=== PATIENT | male | born 1980 | race Caucasian/White ===

== ENCOUNTER 2017-02-17 20:40 | Outpatient (CLI) | payer MEDICAID | END 2017-02-17 23:59 | disposition home or self-care (01) | LOC: MCT 20:40 | PROVIDERS: ATTEND Family Medicine | DX: K57.30 Diverticulosis of large intestine without perforation or abscess without bleeding (principal) ==

== ENCOUNTER 2017-03-04 02:07 | Emergency (ER) | payer MEDICAID ==
[~2017-03-04] VITALS: Ht 185.4 cm; Wt 91.8 kg
[2017-03-04 02:21] VITALS: BP 144/88
--- NOTE | 2017-03-04 02:26 | NUR ---
PT TAKEN TO BED 7
--- NOTE | 2017-03-04 02:28 | NUR ---
Dr. Rosales evaluating patient at bedside.
--- NOTE | 2017-03-04 02:30 | NUR ---
36/M C/O /10 PAIN TO LT GREAT TOE D/T INGROWN TOENAIL. SITE NOTED WITH SWELLING AND MILD REDNESS, PT REPORTS MINIMAL PURULENT DRAINAGE AT HOME, NO DRAINAGE NOTED AT THIS TIME. DENIES PMH AND RX. DENIES N/V/D; SKIN IS PINK/WARM/DRY; AAOX4 WITH EVEN AND STEADY GAIT; LUNGS CLEAR BL; HR EVEN AND REGULAR; PT DENIES ANY FEVER, CP, SOB, OR COUGH AT THIS TIME; VSS; PATIENT POSITIONED FOR COMFORT; HOB ELEVATED; BEDRAILS UP X2; BED DOWN. ER MD MADE AWARE OF PT STATUS.
[2017-03-04] MEDS ORDERED: NEOMYCIN/POLYMYXIN/BACITRACIN 0.9 GM/1 PKT TP ONE ×2 (02:35→03:17)
--- NOTE | 2017-03-04 02:36 | NUR ---
Dr. Robles evaluating patient at bedside.
[2017-03-04] MEDS ORDERED: LIDOCAINE 1% ED 50 ML ONE (02:40)
[2017-03-04] MEDS ORDERED: LIDOCAINE/PRILOCAINE 2.5% 30 GM TUBE TP ONE ×2 (02:54→03:00)
--- NOTE | 2017-03-04 02:55 | NUR ---
DR. SANTOS PERFORMING PROCEDURE AT BEDSIDE.
[2017-03-04] MEDS ORDERED: LIDOCAINE 1% 500 MG/50 ML VIAL INJ ONE (03:00)
[2017-03-04 03:19] VITALS: BP 140/80
--- NOTE | 2017-03-04 03:19 | NUR ---
Patient discharged with v/s stable. Written and verbal after care instructions given and explained. Patient alert, oriented and verbalized understanding of instructions. Ambulatory with to car. All questions addressed prior to discharge. ID band removed. Patient advised to follow up with PMD. Rx of NEOSPONRIN TOPICAL OINTMENT, NAPROSYN 500 MG given. Patient educated on indication of medication including possible reaction and side effects. Opportunity to ask questions provided and answered.
== END 2017-03-04 03:19 | disposition home or self-care (01) ==
LOC: MED 02:07
DX: L60.0 Ingrowing nail (principal)
CPT/HCPCS: 11730; 99283; J2001